=== PATIENT | female | born 1945 | race Caucasian/White ===

== ENCOUNTER 2020-08-06 08:24 | Emergency (ER) | payer MEDICARE ==
[~2020-08-06] VITALS: Ht 154.9 cm; Wt 72.6 kg
[2020-08-06 10:36] VITALS: BP 149/60
== END 2020-08-06 10:38 | disposition home or self-care (01) ==
LOC: ER 08:40
DX: S00.03XA Contusion of scalp, initial encounter (principal); W18.12XA Fall from or off toilet with subsequent striking against object, initial encounter; Y92.002 Bathroom of unspecified non-institutional (private) residence as the place of occurrence of the external cause; I10 Essential (primary) hypertension; R32 Unspecified urinary incontinence
CPT/HCPCS: 70450; 72125; 99283

== ENCOUNTER 2024-04-11 00:28 | Emergency (ER) | payer MEDICARE, OTHER ==
[~2024-04-11] VITALS: Ht 154.9 cm; Wt 72.6 kg
[2024-04-11 00:45] VITALS: PULSE 89; RESP 19; TEMP 98.8
[2024-04-11] MEDS: ACETAMINOPHEN 325 MG TAB PO ONE (02:36)
[2024-04-11 05:59] VITALS: BP 139/79; PULSE 81; RESP 17; O2SAT 98
== END 2024-04-11 06:07 | disposition home or self-care (01) ==
LOC: ER 00:33
DX: M25.532 Pain in left wrist (principal); M79.642 Pain in left hand; M19.032 Primary osteoarthritis, left wrist; M19.042 Primary osteoarthritis, left hand; I10 Essential (primary) hypertension; R32 Unspecified urinary incontinence
CPT/HCPCS: 99282